=== PATIENT | female | born 1950 | race Caucasian/White ===

== ENCOUNTER 2017-05-20 20:48 | Inpatient (IN) | payer MEDICARE, BC ==
[~2017-05-20] VITALS: Ht 167.6 cm; Wt 73.9 kg
[~2017-05-20 20:48] MED LIST: ACCUNEB SO1.25 MG/1 INH; ADVAIR 250-501 EACH; AMANTADINE 100100 MG PO; AUGMENTIN 875875 MG PO; B12INJ PO; CLARITIN10 MG PO; DIFLUCAN100 MG PO; DULERA 200 MCG/13 GM INH; DUONEB 2.5-0.5 M3 ML INH; FLAGYL 250 MG250 MG PO; FOLIC ACID1 MG PO; HYDROCHLOROTH12.5 M1 PO; LOVASTATIN 20 M20 MG PO; MUCINEX TA600 MG/TA2 PO; NEXIUM; NEXIUM40 MG PO; NORTRIPTYLINE H10 M2 PO; PREDNISONE 10 M10 MG PO; SUPER B COMPLE150 MG PO; TESSALON PERLE100 MG PO; VITAMIN D2000 UNIT PO; XANAX 0.25 MG0.25 MG PO; ZYRTEC10 M5 PO
[2017-05-20 20:50] VITALS: BP 136/89
[2017-05-20 21:02] LABS: ABSOLUTE BASOPHILS 0.1 thou/uL (0.0-0.2); ABSOLUTE EOSINOPHILS 0.3 thou/uL (0.0-0.7); ABSOLUTE LYMPHOCYTES 1.9 thou/uL (0.8-5.3); ABSOLUTE MONOCYTES 0.5 thou/uL (0.0-1.2); ABSOLUTE NEUTROPHILS 4.7 thou/uL (1.6-8.1); EOSINOPHILS 3.8 %; HEMATOCRIT 35.6 % (37.0-47.0); HEMOGLOBIN 12.2 gm/dL (12.0-15.0); MCH 30.8 pg (26.0-34.0); MCHC 34.4 g/dL (28.0-37.0); MCV 89.7 fL (80.0-100.0); MONOCYTES 6.2 %; MPV 8.7 fl. (7.2-11.1); NUCLEATED RBCS 0 /100WBC; PLATELET COUNT* 298 thou/uL (150-400); RBC 3.97 mil/uL (4.20-5.00); WBC 7.4 thou/uL (4.0-11.0)
[2017-05-20] MEDS ORDERED: NEURONTIN 300300 M1 PO (21:23)
[2017-05-20] MEDS ORDERED: PAMELOR25 MG PO (21:24)
[2017-05-20 21:32] LABS: APTT 26.1 Seconds (25.0-31.3); PROTIME 9.6 Seconds (9.20-11.50)
[2017-05-20 21:39] LABS: CREATININE 0.9 mg/dL (0.6-1.3); POTASSIUM 3.6 mmol/L (3.5-5.1)
[2017-05-20 21:44] LABS: ALBUMIN 3.6 g/dL (3.4-5.0); TOTAL BILIRUBIN 0.3 mg/dL (<0.1-1.0); TOTAL PROTEIN 6.9 g/dL (6.4-8.2)
[2017-05-20 23:06] LABS: URINE BILIRUBIN NEGATIVE (Negative); URINE BLOOD NEGATIVE (Negative); URINE CLARITY CLEAR; URINE COLOR YELLOW; URINE GLUCOSE-RANDOM NEGATIVE (Negative); URINE KETONES NEGATIVE (Negative); URINE LEUKOCYTES-REFLEX NEGATIVE (Negative); URINE NITRITE-REFLEX NEGATIVE (Negative); URINE PROTEIN NEGATIVE (Negative); URINE SPECIFIC GRAVITY <= 1.005 (1.005-1.030); URINE UROBILINOGEN 0.2 E.U./dl (0.2-1.0)
[2017-05-20 23:20] VITALS: BP 150/73
[2017-05-21 04:00] VITALS: BP 101/34
--- NOTE | 2017-05-21 05:20 | NUR ---
PT ADMITTED FROM ER. HISTORY AND ASSESSMENT COMPLETE. SR WITH PVC'S ON MONITOR. IVF INFUSING. CALL LIGHT IN REACH. BED IN LOWEST POSITION. FALL PRECAUTIONS IN PLACE. NIH SCORES 0.
--- NOTE | 2017-05-21 07:15 | NUR ---
ASSUMED CARE OF PT ASSESSED AND DOCUMENTED. PT IS ON CARDIAC MONITER TRACING SR WITH PVC'S HR 76. PT IS A&O WITH NO C/O PAIN. VSS WNL. PT IS ON ROOM AIR. BED IN LOW POSITION CALL LIGHT IS IN REACH. WM.
[2017-05-21 08:00] VITALS: BP 140/65
--- NOTE | 2017-05-21 11:49 | EKG ---
[place] [address] ELECTROCARDIOGRAM REPORT Name: MARÍA ELENA CAMPBELL Room: [facility] ADM IN M.R.#: [id number] Admission: 05/20/17 Attend Phys: Rafael Lo, Discharge: Date of : 54 Report #: [id number] THIS REPORT FOR: //name// [facility] ED Test Date: 2017-05-20 Test Time: 21:13:43 Pat Name: MARÍA ELENA CAMPBELL Department: Room: [facility] Gender: F [employer] Director: YULIANA Warren : 1950 Requested By: Elaine Bain Order Number: [id number] MD: Darrius Gale Measurements Intervals [place] Rate: 75 P: 36 KY: 230 QRS: 6 QRSD: 99 T: 67 QT: 408 QTc: 456 Interpretive Statements Sinus rhythm Prolonged [place] interval Left ventricular hypertrophy Compared to ECG 02/06/2016 21:30:47 First degree AV block now present ST (T wave) deviation no longer present Electronically Signed On 05-21-2017 11:49:40 ADMINISTRATIVE TECH by Darrius Gale [email or web address] <ELECTRONICALLY SIGNED> By: Darrius Gale MD, FACC 05/21/17 1149 12 12 Darrius Gale MD, FAC /EPI
[2017-05-21 12:10] VITALS: BP 143/69
[2017-05-21 16:14] VITALS: BP 148/57
--- NOTE | 2017-05-21 17:29 | NUR ---
PT HAS RESTED IN HER ROOM THIS SHIFT. AND DAUGHTER AT BEDSIDE FOR A WHILE. PT REQUESTED GLUTEN FREE DIET NO DAIRY OR ORANGE JUICE. EDUCATION GIVEN ON DEMAND. HOURLY ROUNDING COMPLETE.
[2017-05-21 20:20] VITALS: BP 145/70
[2017-05-22] VITALS: BP 142/74
[2017-05-22 04:00] VITALS: BP 133/67
--- NOTE | 2017-05-22 04:10 | NUR ---
PT A&O X4 CALM COOPERTIVE. SR ON THE MONITOR. NIH Q4. PT IS POSSIBLE D/C TODAY. GULTIN FREE AND NO DAIRY DIET. ADLIB IN ROOM. VITALS WNL. HOURLY ROUNDING FOR SAFETY.
[2017-05-22 04:36] LABS: HEMATOCRIT 35.2 % (37.0-47.0); HEMOGLOBIN 12.1 gm/dL (12.0-15.0); MCH 30.6 pg (26.0-34.0); MCHC 34.3 g/dL (28.0-37.0); MCV 89.4 fL (80.0-100.0); MPV 8.9 fl. (7.2-11.1); RBC 3.94 mil/uL (4.20-5.00); WBC 5.8 thou/uL (4.0-11.0)
[2017-05-22 04:55] LABS: CALCIUM 8.6 mg/dL (8.5-10.1); CREATININE 0.7 mg/dL (0.6-1.3); POTASSIUM 3.3 mmol/L (3.5-5.1)
--- NOTE | 2017-05-22 07:15 | NUR ---
ASSUMED CARE OF PT ASSESSED AND DOCUMENTED. PT IS ON CARDIAC MONITER TRACING SR PVC'S HR 72. PT IS A&O WITH NO C/O PAIN. VSS WNL AND PT IS AFEBRILE. SHE IS ON ROOM AIR. PT IS 0 ON NIH SCORE. WM.
[2017-05-22 08:00] VITALS: BP 152/69
--- NOTE | 2017-05-22 09:25 | NUR ---
PT HAS A K+ OF 3.3. DR BARBER GAVE ORDER TO START ELECTROLYTE PROTOCOL.
[2017-05-22 11:00] VITALS: BP 146/72
[2017-05-22] MEDS ORDERED: SYNTHROID50 MCG PO (12:48)
--- NOTE | 2017-05-22 14:30 | NUR ---
MET WITH PT TO DISCUSS HOME SITUATION/DC PLANNING. PT LIVES WITH SPOUSE. STATES HE HAD RECENT HEART SURGERY AND SHE HAS BEEN UNDER 'STRESS'. TALKED WITH PT ABOUT [place]YS TO [place]. SHE HOPES TO GO HOME. STATES SHE IS INDEPENDENT AND ACTIVE. HAS NEBULIZER AND USES INHALER. DENIES NEEDS
--- NOTE | 2017-05-22 15:03 | NUR ---
I have reviewed the documentation by SHANNAN ALVARENGA from 05/22/17 to 05/22/17 and I concur with it. NAYANA SILVA
[2017-05-22 16:00] VITALS: BP 146/77
--- NOTE | 2017-05-22 16:17 | 2DMMODE ---
[place] [address] 2 D/M-MODE ECHOCARDIOGRAM Name: MARÍA ELENA CAMPBELL Room: [place] [address] ADM IN [place].#: [id number] Admission: 05/20/17 Attend Phys: Rafael Hawthorne Discharge: Date of : 54 Date of Service: 05/22/17 1617 Report #: [id number] THIS REPORT FOR: //name// APPROVED REPORT Study performed: 05/22/2017 13:23:51 EXAM: Comprehensive 2D, Doppler, and color-flow Echocardiogram Patient Location: Bedside BSA: 1.81 HR: 79 bpm BP: 152/69 mmHg Other Information Study Quality: Good Indications Aortic Valve Disease CVA/TIA Echo Enhancing Agent Indication: Rule out Shunt Agent(s) / Amount(s) Used: Agitated Saline cc 2D Dimensions LVEF(%): 58.93 (>50%) IVSd: 14.10 (7-11mm) LVOT Diam: 20.32 (18-24mm) LVDd: 49.06 mm PWd: 7.90 (7-11mm) Ascending Ao: 31.73 (22-36mm) LVDs: 33.71 (25-40mm) Aortic Root: 27.86 mm Mckeon's LVEF: 58.93 % Volumes Left Atrial Volume (Systole) LA ESV Index: 38.70 mL/m2 Aortic Valve AoV Peak Amadeo.: 3.02 m/s AO Peak Gr.: 36.58 mmHg LVOT Max P.87 mmHg AO Mean Gr.: 22.80 mmHg LVOT Mean P.83 mmHg LVOT Max V: 0.98 m/s AO V2 VTI: 67.58 cm LVOT Mean V: 0.61 m/s LOLLY (VTI): 1.14 cm2 LVOT V1 VTI: 23.80 [place] [address] 2 D/M-MODE ECHOCARDIOGRAM Name: MARÍA ELENA CAMPBELL Room: [address] IN .R.#: [id number] Admission: 05/20/17 Attend Phys: Rafael Hawthorne Discharge: Date of : 54 Date of Service: 05/22/17 1617 Report #: [id number] Mitral Valve E/A Ratio: 0.64 MV Decel. Time: 180.26 ms MV E Max Amadeo.: 0.75 m/s MV PHT: 52.28 ms MVA (PHT): 4.21 cm2 TDI E/Lateral E': 7.50 E/Medial E': 9.38 Medial E' Amadeo.: 0.08 m/s Lateral E' Amadeo.: 0.10 m/s Pulmonary Valve PV Peak Amadeo.: 0.89 m/s PV Peak Gr.: 3.20 mmHg Tricuspid Valve RAP Estimate: 5.00 mmHg TR Peak Gr.: 25.85 mmHg RVSP: 30.85 mmHg PA Pressure: 30.85 mmHg Left Ventricle The left ventricle is normal size. There is normal left ventricular wall thickness. Left ventricular systolic function is normal. The left ventricular ejection fraction is within the normal range. LVEF is 55-60%. Grade I - abnormal relaxation pattern. Right Ventricle The right ventricle is normal size. The right ventricular systolic function is normal. Atria Left atrium is moderately dilated. Injection of bubbles documented no interatrial shunt. The right atrium size is normal. Aortic Valve Aortic valve is calcified. No aortic regurgitation is present. Moderate aortic stenosis. Mitral Valve The mitral valve is normal in structure. Trace mitral regurgitation. No evidence of mitral valve stenosis. Tricuspid Valve The tricuspid valve is normal in structure. [place] [address] 2 D/M-MODE ECHOCARDIOGRAM Name: MARÍA ELENA CAMPBELLZABETH Room: [address] IN M.R.#: [id number] Admission: 05/20/17 Attend Phys: Rafael Hawthorne Discharge: Date of : 54 Date of Service: 05/22/17 1617 Report #: [id number] Pulmonic Valve The pulmonary valve is normal in structure. There is no pulmonic valvular regurgitation. Great Vessels The aortic root is normal in size. IVC is normal in size and collapses with >50% inspiration Pericardium There is no pericardial effusion. <Conclusion> LVEF is 55-60%. Left atrium is moderately dilated. Moderate aortic stenosis. Injection of bubbles documented no interatrial shunt. <ELECTRONICALLY SIGNED> By: Geraldo Freire MD, FACC 05/22/17 1617 161 161 Geraldo Freire MD, FACC /INF
[2017-05-22 16:31] VITALS: BP 146/72
--- NOTE | 2017-05-22 17:39 | NUR ---
PT D/C'D TO HOME. ALL CONSULTS OK WITH D/C. EDUCATION GIVEN REGARDING MEDICATIONS, FOLLOW-UPS, AND DRS ORDERS. PT LEFT ACCOMPANIED BY DAUGHTER. ALL BELONGINGS PACKED UP AND LEFT WITH PT. K+ WNL.
--- NOTE | 2017-05-23 17:04 | CON ---
[address] [address] CONSULTATION Name: MARÍA ELENA CAMPBELL Room: [address] IN M.R.#: [id number] Admission: 05/20/17 Attend Phys: Rafael Lo, Discharge: 05/22/17 Date of : 54 Report #: [id number] THIS REPORT FOR: //name// CC: Renetta Lo DATE OF SERVICE: 05/22/2017 HISTORY OF PRESENT ILLNESS: The patient is a 67-year-old white female I was asked to see in the hospital today after she apparently had a syncopal spell. The history is obtained from the patient as well as some old records. She has a long history of heart murmur and has been followed by Dr. Cb Talavera at in the [facility]iology [facility]. Testing there included a nuclear stress test in 2012 that showed no evidence of ischemia. Ejection fraction was normal. She also had an echocardiogram in 11/2015 that showed left atrial enlargement, left ventricular hypertrophy, ejection fraction 60%. There is evidence of moderate aortic stenosis, valve area of 0.9-1.0 cm2 with a peak gradient of 28 mmHg. Echocardiogram in 2014 showed the gradient was 31 mmHg. The patient had a history of lightheaded spells in 2016 and wore a monitor for 30 days. She was found to have sinus rhythm, PVCs, PACs. She had symptomatic transmissions that showed no significant arrhythmias. There was a short 3 second episode of an atrial tachycardia. The patient states she last saw Dr. Talavera in 03/2017. He recommended that she return in June for her yearly echo. She does not exercise on a regular basis. The patient states that she worked 2 days ago. She felt somewhat fatigued that day. That night, she was in her kitchen with her cooking dinner when she suddenly felt lightheaded. When she awakened, she was on the ground. Paramedics were contacted and she was brought here to [facility] by ambulance. Apparently, when paramedics arrived, she was having difficulty speaking. She was brought to the Emergency Room and a code stroke was activated. She was seen by Neurology and the impression was this was not a stroke, nor seizure. No further workup was planned. Because of a history of aortic stenosis and dizzy spells, I was asked to see her for further evaluation and treatment. She denies history of myocardial infarction or chest pain. She denies significant shortness of breath. She notes occasional skipped heartbeat. She had no seizure activity. PAST MEDICAL HISTORY: Otherwise significant for cholecystectomy, hypertension. She apparently was thought to have had seizures in the past while on Lamictal for a while, but developed side effects. She also was on Dyazide in the past, was taken off because of hyponatremia. CURRENT MEDICATIONS: Include Xanax, amantadine, Nexium, Neurontin, Crestor, Pamelor. ALLERGIES: SHE HAS INTOLERANCE TO [place]ICT[place] [address] CONSULTATION Name: MARÍA ELENA CAMPBELL Room: [address] IN ..#: [id number] Admission: 05/20/17 Attend Phys: Rafael Lo, Discharge: 05/22/17 Date of : 54 Report #: [id number] FAMILY HISTORY: Positive for heart disease. SOCIAL HISTORY: She is . She and her live in [place], [place]. She works as a realtor. Quit smoking years ago. No alcohol. REVIEW OF SYSTEMS: She has had no history of stroke. She has asthma and sees a locomotive mechanic at , no history of peptic ulcer disease. She has been told in the past, she had a fatty liver. No history of kidney disease, no cancer, no psychiatric illness. PHYSICAL EXAMINATION: GENERAL: Revealed a middle-aged female lying in bed. She appeared in no distress. VITAL SIGNS: She had a blood pressure of 140/70, pulse 80, she is afebrile. HEENT: She was anicteric, conjunctivae pink. Mucous membranes are moist. NECK: Veins are not distended. Radiating systolic murmur noted in the carotids. CHEST: Clear to auscultation. CARDIOVASCULAR: Regular rate and rhythm, grade 3 systolic ejection murmur. ABDOMEN: Soft, nontender. EXTREMITIES: Had no edema. Dorsalis pedis pulse 1+ bilaterally. SKIN: Warm, dry. NEUROLOGIC: Nonfocal. LYMPHATIC: No adenopathy. MUSCULOSKELETAL: No joint effusion. DIAGNOSTIC DATA: Her ECG on admission showed a sinus rhythm, nonspecific ST-segment changes. Workup so far, she actually had an echocardiogram here at [facility] in 2016, which showed an ejection fraction 70% with mild aortic stenosis. Her x-rays since her admission [address] scan of the head without contrast that was unremarkable. Chest x-ray, normal heart size and clear lung baez. LABORATORY WORK: Sodium 144, potassium 3.3, creatinine 0.7, glucose 98. Liver function studies were normal. T4 is 0.9. White blood cell count 5.8, hemoglobin 12.1. IMPRESSION: 1. Moderate aortic stenosis. Recommend repeat echo. 2. Syncope. Possible vasovagal. Recommend no further cardiac evaluation. 3. History of hypertension. The patient was previously on a thiazide diuretic, which was discontinued because of hyponatremia. If blood pressure remains greater than 140/85, we would consider [place] [address] CONSULTATION Name: MARÍA ELENA CAMPBELL Room: [address] IN M.R.#: [id number] Admission: 05/20/17 Attend Phys: Rafael Lo, Discharge: 05/22/17 Date of : 54 Report #: [id number] 4. Possible history of seizures in the past. 5. Asthma. <ELECTRONICALLY SIGNED> By: Geraldo Freire MD, FACC 05/23/17 1704 1142 [id number] Freire MD, FACC /nt
== END 2017-05-22 17:40 | disposition home or self-care (01) | DRG 948 ==
LOC: M.ERS 20:48 → M.TBA-ER 22:45 → M.2W 22:45
PROVIDERS: Personal Emergency Response Attendant; ADMIT Family Medicine
DX: R41.82 Altered mental status, unspecified (principal); J44.9 Chronic obstructive pulmonary disease, unspecified; K21.9 Gastro-esophageal reflux disease without esophagitis; I35.0 Nonrheumatic aortic (valve) stenosis; I10 Essential (primary) hypertension; F43.22 Adjustment disorder with anxiety; J45.909 Unspecified asthma, uncomplicated; E78.5 Hyperlipidemia, unspecified; Z88.8 Allergy status to other drugs, medicaments and biological substances; Z91.013 Allergy to seafood; Z90.49 Acquired absence of other specified parts of digestive tract; Z82.5 Family history of asthma and other chronic lower respiratory diseases; Z87.891 Personal history of nicotine dependence; Z79.899 Other long term (current) drug therapy; Z87.820 Personal history of traumatic brain injury; Z69.11 Encounter for mental health services for victim of spousal or partner abuse; Z82.49 Family history of ischemic heart disease and other diseases of the circulatory system

== ENCOUNTER 2020-02-17 02:00 | Emergency (ER) | payer MEDICARE, BC ==
[~2020-02-17] VITALS: Ht 170.2 cm; Wt 73.5 kg
[~2020-02-17 02:00] MED LIST changes: +NEURONTIN 300300 M1 PO; +PAMELOR25 MG PO; +SYNTHROID50 MCG PO
[2020-02-17] MEDS ORDERED: PLAVIX 75 MG TA75 MG PO (02:21)
[2020-02-17] MEDS ORDERED: ASA81BEC PO (02:23)
[2020-02-17] MEDS ORDERED: CRESTOR40 MG PO (02:26)
[2020-02-17 02:35] LABS: HEMATOCRIT 36.3 % (37.0-47.0); MCH 28.8 pg (26.0-34.0); MCV 87.3 fL (80.0-100.0); MPV 8.4 fl. (7.2-11.1); RBC 4.16 mil/uL (4.20-5.00); RDW-CV 13.9 % (10.5-14.5); WBC 7.1 thou/uL (4.0-11.0)
[2020-02-17 02:41] LABS: INR 0.9; PROTIME 9.4 Seconds (9.20-11.50)
[2020-02-17 03:28] VITALS: BP 149/55
== END 2020-02-17 03:29 | disposition home or self-care (01) ==
LOC: M.ERS 02:00
PROVIDERS: Emergency Medicine Emergency Medical Services
DX: R04.0 Epistaxis (principal); J44.9 Chronic obstructive pulmonary disease, unspecified; K21.9 Gastro-esophageal reflux disease without esophagitis; Z88.8 Allergy status to other drugs, medicaments and biological substances; Z91.040 Latex allergy status; Z91.013 Allergy to seafood; Z91.018 Allergy to other foods; Z87.891 Personal history of nicotine dependence